=== PATIENT | male | born 1965 | race Caucasian/White ===

== ENCOUNTER 2017-11-20 05:05 | Observation (INO) ==
[2017-11-20] MEDS ORDERED: methylPREDNISolone 125 MG/2 ML VIAL IVP ONE (05:15)
[2017-11-20] MEDS ORDERED: 0.9 % Sodium Chloride 1,000 ML IVC ONE (05:15)
[2017-11-20] MEDS ORDERED: Ipratropium/Albuterol Neb 3 ML IH ONE (05:33)
--- NOTE | 2017-11-20 05:33 | Emergency Department Note ---
Disposition Clinical Impression: Asthma exacerbation Qualifiers: Asthma severity: mild Asthma persistence: unspecified Qualified Code(s): J45.901 - Unspecified asthma with (acute) exacerbation Disposition: Still a Patient Condition: Undetermined General Adult HPI - General Chief complaint: ED Chest Pain Time Seen by Provider: 11/20/17 05:08 Source: patient Mode of arrival: private vehicle Limitations: no limitations Nursing Notes Reviewed: Yes Vital Signs Reviewed: Yes - History of Present Illness HPI Narrative: 52-year-old male with a history of asthma, hypertension presents emergency department for evaluation of difficulty breathing, possible allergic reaction. Patient states about 345 this morning he got up and was having a difficult time breathing, he noticed a rash all over the back of his legs, trunk, back that was red and raised and was pruritic. He said he was drenched in sweat and had a few minutes of heavy chest pressure. He states he woke his up who gave him a 25 mg of Benadryl at 0 4:15. Patient states afterwards it felt like his "lips were going numb" and that his tongue was "itchy" at that point, his called for squad to bring him to the emergency department. Patient states now, his tongue and lips feel "normal", he is denying chest pain at this time, pruritus has gone away. His only complaint right now is shortness of breath and difficulty with breathing. He denies any recent illness , fever, chills, difficulty swallowing, facial swelling, tongue swelling, trismus, choking, lip swelling, shortness of breath prior to tonight, dyspnea with exertion, nausea, vomiting, consultation, diarrhea, edema. Patient denies exposure to known allergens. He states no new foods, soaps, lotions, laundry detergents, clothes. He did not have the windows open, nothing has changed. 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 Denies: confusion, cough, fever/chills, headaches, loss of appetite, malaise, nausea/vomiting, seizure, syncope, weakness Treatments Prior to Arrival: other - Related Data Home Medications Medication Instructions Recorded Confirmed Albuterol Sulfate [Albuterol 1 puff IH Q4H 12/21/14 02/01/15 Inhaler] Aspirin Enteric Coated [Aspirin EC] 81 mg PO DAILY 12/21/14 02/01/15 Dextroamphetamine/Amphetamine 30 mg PO BID 12/21/14 02/01/15 [Adderall 30 mg Tablet] Atorvastatin [Lipitor] 10 mg PO HS 02/01/15 02/01/15 Escitalopram [Lexapro] 10 mg PO DAILY 02/01/15 02/01/15 Esomeprazole Magnesium [Nexium] 40 mg PO DAILY 02/01/15 02/01/15 Metoprolol XL (24 HR) Succ [Toprol 25 mg PO QPM 02/01/15 02/01/15 XL] Montelukast [Singulair] 10 mg PO DAILY 02/01/15 02/01/15 Ropinirole HCl [Requip] 2 mg PO HS 02/01/15 02/01/15 Previous Rx's Medication Instructions Recorded Ciprofloxacin [Cipro] 500 mg PO BID #14 tablet 04/08/15 Ondansetron ODT [Zofran ODT] 4 mg SL Q6HR #30 tab.rapdis 04/08/15 OxyCODONE/APAP 5/325 [Percocet 1 each PO Q4HR #10 tablet 04/08/15 5/325 MG] Tamsulosin [Flomax] 0.4 mg PO DAILY #5 cap.er.24h 04/08/15 Acetaminophen [Tylenol] 500 mg PO Q6HR PRN #20 tablet 04/13/17 Allergies Allergy/AdvReac Type Severity Reaction Status Date / Time bee venom protein (honey bee) Allergy Anaphylaxis Verified 04/13/17 16:15 shellfish derived Allergy Swelling Verified 04/13/17 16:15 of Lip/Tongue/Throat All systems ED: reviewed and negative except as stated. Review of Systems: As Per HPI Past Medical History - Past Medical History Attestation: Yes The following information was validated with the patient. Source: patient Medical history: Reports: asthma, COPD, hypertension, migraine Surgical history: Reports: orthopedic, other, vasectomy, other Psychiatric history: Reports: anxiety, depression - Social History Smoking Status: Current every day smoker Smokeless Tobacco Status: No Alcohol use: Reports: none Drug use: Reports: none Physical Exam - General Limitations: no limitations General appearance: alert, in no apparent distress - Head Head exam: atraumatic, normocephalic, normal inspection - Eye Eye exam: Present: normal appearance - ENT ENT exam: normal exam, normal oropharynx, mucous membranes moist - Expanded ENT Exam Mouth exam: Present: normal external inspection, tongue normal. Absent: drooling, trismus, lip swelling, tongue elevation, tounge swelling, laceration Teeth exam: Present: normal inspection Throat exam: Present: normal inspection - Neck Neck exam: Present: normal inspection, full ROM, trachea midline. Absent: tenderness, lymphadenopathy - Chest Chest inspection: Present: normal inspection, symmetric chest wall rise - Respiratory Respiratory exam: Present: wheezes, accessory muscle use - Expanded Respiratory Exam Location: wheezes: Left, Right, Upper, Lower, decreased breath sounds: Lower, Right, Left - Cardiovascular Cardiovascular exam: Present: regular rate, normal rhythm, normal heart sounds - Abdominal Exam Abdominal exam: Present: soft, Non-Tender, normal bowel sounds - Extremities Exam Extremities exam: Present: normal inspection, full ROM. Absent: tenderness, pedal edema - Expanded Lower Extremity Exam Neurovascular/Tendon exam: Present: normal capillary refill. Absent: pulse deficit Gait: observed and normal - Back Exam Back exam: Present: normal inspection, full ROM - Neurological Exam Neurological exam: Present: alert, oriented X3, CN II-XII intact. Absent: motor sensory deficit - Expanded Neurological Exam Patient oriented to: Present: person, place, time Speech: Present: fluid speech Cranial nerves: EOM function (II, III, IV, ): Normal, facial sensation (V): Normal, facial palsy (VII): Normal, spinal accessory function (XI): Normal, tongue deviation (XII): Normal Cerebellar function: heel to davis: Normal Motor strength - LUE: 5/5 Motor strength - RUE: 4/5 (chronic loss of strength) Motor strength - LLE: 5/5 Motor strength - RLE: 5/5 Sensory exam upper extremity: light touch: Normal Sensory exam lower extremity: light touch: Normal Coma Scale Eye Opening: Spontaneous Coma Scale Motor Response: Obeys Commands Coma Scale Verbal Response: Oriented Coma Scale Total: 15 - Psychiatric Psychiatric exam: Present: normal affect, normal mood - Skin Skin exam: Present: warm, dry, intact, normal color, other - Expanded Skin Exam Type of lesion: Present: rash 1 - Sporadic small erythemic macular areas, faint in appearance. 2 - Sporadic small erythemic macular areas, faint in appearance. 3 - Sporadic small erythemic macular areas, faint in appearance. Course Course Narrative: Well-developed, nontoxic-appearing male. Respirations are easy and even, patient noted to be using accessory muscles but does not appear in respiratory distress. He is able to speak in full sentences. Patient is neurologically intact. Lungs wheezing throughout with diminished sounds lower lobes posteriorly. Abdomen soft. There is a faint macular rash sporadically to back of legs, trunk, upper back. We will obtain basic labs, chest x-ray provide sign Medrol, breathing treatment , 25 Benadryl reevaluate. Vital Signs Temperature 97.4 F L 11/20/17 05:10 Pulse Rate 81 11/20/17 05:10 Respiratory Rate 18 11/20/17 05:10 Blood Pressure 155/114 11/20/17 05:10 O2 Sat by Pulse Oximetry 96 11/20/17 05:10 Temperature 97.4 F L 11/20/17 05:10 Pulse Rate 81 11/20/17 05:10 Respiratory Rate 18 11/20/17 05:10 Blood Pressure 155/114 11/20/17 05:10 O2 Sat by Pulse Oximetry 96 11/20/17 05:10 Oxygen Delivery Oxygen Delivery Room Air S.B.A.R. - S.B.A.R. Situation: Demographics, MOA Background: Presenting Complaint, Relevant PMH, Meds, & Allergies Assessment: Vital Signs, Course and respsone to treatment, Exam Concerns, Patient/Family Expectation, Pertinant Lab Results, Outstanding Labs Recommendation: Barrier(s) to disposition, Recommendation based on pending studies, treatments, or consults S.B.A.R. Report Given to: Emerald Aguirre CNP S.B.A.RKendal Repor Time: 06:05
[2017-11-20 06:26] LABS: Basophils % 0.3 %; Eosinophils % 0.3 %; Hematocrit 47.8 % (37.5-50.1); Hemoglobin 16.9 g/dL (12.9-16.9); Immature Granulocytes % 0.2 % (0-4); Lymphocytes # 2.3 K/mcL (0.6-4.6); Lymphocytes % 25.7 %; Mean Corpuscular HGB Conc 35.4 g/dL (31.6-35.5); Mean Corpuscular Hemoglobin 33.7 pg (28.0-33.3); Mean Corpuscular Volume 95.4 fL (83.0-100.0); Mean Platelet Volume 10.4 fL (9.4-12.4); Monocytes # 0.9 K/mcL (0.0-1.3); Monocytes % 9.6 %; Neutrophils # 5.7 K/mcL (1.6-8.9); Platelet Count 169 K/mcL (140-400); Red Blood Count 5.01 M/mcL (4.19-5.50); Red Cell Distribution Width 13.4 % (11.5-14.5); Segmented Neutrophils % 63.9 %
[2017-11-20] MEDS ORDERED: Aspirin 81 MG TAB.CHEW PO ONE (06:37)
[2017-11-20] MEDS ORDERED: Nitroglycerin 0.4 MG TAB.SUBL SL PRN (06:37)
[2017-11-20 06:38] LABS: Activated Partial Thrombo Time 35.1 Seconds (26.0-36.0)
--- NOTE | 2017-11-20 06:42 | Emergency Department Note ---
Disposition Clinical Impression: Hypoxia Asthma exacerbation Qualifiers: Asthma severity: mild Asthma persistence: unspecified Qualified Code(s): J45.901 - Unspecified asthma with (acute) exacerbation Chest pain Qualifiers: Chest pain type: unspecified Qualified Code(s): R07.9 - Chest pain, unspecified Disposition: Admitted As Inpatient Condition: Undetermined Referrals: Ricci Cleveland DO [Primary Care Provider] - Forms: ED Satisfaction Letter Time of Disposition: 09:37 General Adult HPI - General Chief complaint: ED Chest Pain Time Seen by Provider: 11/20/17 05:08 Source: patient Mode of arrival: private vehicle Limitations: no limitations - History of Present Illness Pain Scale: 3 Improves with: medication Worsens with: nothing Associated symptoms: Reports: chest pain, diaphoresis, rash, shortness of breath. Denies: confusion, cough, fever/chills, headaches, loss of appetite, malaise, nausea/vomiting, seizure, syncope, weakness Treatments Prior to Arrival: other - Related Data Home Medications Medication Instructions Recorded Confirmed Albuterol Sulfate [Albuterol 2 puff IH Q4H PRN 11/20/17 11/20/17 Inhaler] Aspirin Enteric Coated [Aspirin EC] 81 mg PO DAILY 11/20/17 11/20/17 Atorvastatin [Lipitor] 40 mg PO HS 11/20/17 11/20/17 Cholecalciferol (D-3) [Vitamin D] 1,000 unit PO DAILY 11/20/17 11/20/17 Dextroamphetamine/Amphetamine 30 mg PO QAM 11/20/17 11/20/17 [Adderall Xr 30 mg Capsule] Dextroamphetamine/Amphetamine 30 mg PO QPM 11/20/17 11/20/17 [Dextroamp-Amphetamin 30 mg Tab] Escitalopram [Lexapro] 10 mg PO DAILY 11/20/17 11/20/17 Esomeprazole Magnesium [Nexium 44.6 mg PO DAILY 11/20/17 11/20/17 24Hr] Fluticasone Propionate Nasal 1 spr NS DAILY 11/20/17 11/20/17 [Flonase] Fluticasone/Vilanterol [Breo 1 puff IH BID 11/20/17 11/20/17 Ellipta 200-25 Mcg INH] Metoprolol Succinate [Toprol Xl] 25 mg PO DAILY 11/20/17 11/20/17 Montelukast [Singulair] 10 mg PO DAILY 11/20/17 11/20/17 Ropinirole HCl [Requip] 3 mg PO HS 11/20/17 11/20/17 Allergies Allergy/AdvReac Type Severity Reaction Status Date / Time bee venom protein (honey bee) Allergy Anaphylaxis Verified 11/20/17 09:29 shellfish derived Allergy Swelling Verified 11/20/17 09:29 of Lip/Tongue/Throat Past Medical History - Past Medical History Medical history: Reports: asthma, COPD, hypertension, migraine Surgical history: Reports: orthopedic, other, vasectomy, other Psychiatric history: Reports: anxiety, depression - Social History Smoking Status: Current every day smoker Smokeless Tobacco Status: No Alcohol use: Reports: none Drug use: Reports: none Physical Exam - General Limitations: no limitations General appearance: alert, in no apparent distress Course Course Narrative: 0600: I have assumed care of this patient from GARETT Zendejas due to mid-level shift change. Please see Cristiana's documentation for care performed prior to my arrival. Briefly, this is an alert and oriented nontoxic-appearing 52-year-old male that presented by EMS with multiple complaints. He states that he was awoken at approximately 4:00 this morning with a sensation of shortness of breath as well as a sensation of swelling of the lips and "itching" of the tongue. His administered 25 mg of Benadryl by mouth. The time of his arrival, the patient stated that the rash was improving he still complained of some shortness of breath. He also admitted to sensation of right-sided chest pressure that was nonradiating. Upon further conversation, the patient is complaining of nontraumatic left shoulder pain for the last 2 weeks. He was given Benadryl, Solu-Medrol, and a breathing treatment upon his arrival. He states significant improvement in his shortness of breath as well resolution of his rash. He denied any new medications, household chemicals, or personal hygiene products. At the time my exam, he denied any ongoing chest pressure however the left shoulder pain continued. EKG shows a normal sinus rhythm. Laboratory workup is pending at this time. 0728: Given the patient's abrupt onset of symptoms, feel that advanced imaging by way of a CTA of the chest is warranted. The patient does have a listed allergy to shellfish however states he is tolerated IV contrast in the past without ill effect. 0900: I discussed this patient's case with Dr. Girard. Dr. Girard has had a ifae-bq-scar evaluation with the patient, reviewed his laboratory and radiology results. Dr. Girard states that he believes that they are quite possibly could have been an allergic component to the patient's complaints however the patient does have a history of asthma and was saturating at only 90-92% on room air. He is not on home oxygen at home. He does use a CPAP at night for obstructive sleep apnea. He recommends admission to the hospital service for further evaluation of an asthma exacerbation and chest pain rule out. I discussed this plan with the patient and his spouse and they are in agreement. 0930: I spoke with Dr. Mcintosh of the hospitalist service. has accepted the patient for admission for further evaluation and treatment however requests ear nose and throat consultation regarding the patient's prior complaints of a sensation of swelling of the lips and "itching of the tongue". ENT alarm installation technician has been paged. 0940: I spoke with Dr. levin, ear nose and throat alarm installation technician. Dr. Ruiz states that he will see the patient in house today after clinic hours. Vital Signs Temperature 97.4 F L 11/20/17 05:10 Pulse Rate 81 11/20/17 05:10 Respiratory Rate 18 11/20/17 05:10 Blood Pressure 155/114 11/20/17 05:10 O2 Sat by Pulse Oximetry 96 11/20/17 05:10 Temperature 97.4 F L 11/20/17 05:10 Pulse Rate 76 11/20/17 08:50 Respiratory Rate 18 11/20/17 08:50 Blood Pressure 145/92 11/20/17 08:50 O2 Sat by Pulse Oximetry 98 11/20/17 08:50 Oxygen Delivery Oxygen Delivery Nasal Cannula Medical Decision Making - Medical Records Medical records reviewed: Yes I reviewed the patient's medical records. - Lab Data Lab results reviewed: Yes I reviewed the patient's lab results. Lab results narrative: Lab Results 11/20/17 11/20/17 11/20/17 Range/Units 06:13 06:13 06:13 WBC 8.9 (4.3-11.1) K/mcL RBC 5.01 (4.19-5.50) M/mcL Hgb 16.9 (12.9-16.9) g/dL Hct 47.8 (37.5-50.1) % MCV 95.4 (83.0-100.0) fL MCH 33.7 H (28.0-33.3) pg MCHC 35.4 (31.6-35.5) g/dL RDW 13.4 (11.5-14.5) % Plt Count 169 (140-400) K/mcL MPV 10.4 (9.4-12.4) fL Immature Gran % 0.2 (0-4) % Seg Neutrophils % 63.9 % Lymphocytes % 25.7 % Monocytes % 9.6 % Eosinophils % 0.3 % Basophils % 0.3 % Neutrophils # 5.7 (1.6-8.9) K/mcL Lymphocytes # 2.3 (0.6-4.6) K/mcL Monocytes # 0.9 (0.0-1.3) K/mcL Eosinophils # 0.0 (0.0-0.6) K/mcL Basophils # 0.0 (0.0-0.2) K/mcL PT 11.0 (9.4-12.1) Seconds INR 1.0 APTT 35.1 (26.0-36.0) Seconds Sodium 139 (136-145) mEq/L Potassium 3.5 (3.5-5.1) mEq/L Chloride 109 H (98-107) mEq/L Carbon Dioxide 25 (23-29) mEq/L BUN 13 (6-20) mg/dL Creatinine 0.73 (0.70-1.30) mg/dL Est GFR ( Amer) > 60 (> 60) Est GFR (Non-Af Amer) > 60 (> 60) BUN/Creatinine Ratio 18 (6-26) Glucose 92 (70-105) mg/dL Calculated Osmolality 288 (280-300) Calcium 8.8 (8.6-10.3) mg/dL Troponin I < 0.03 (< 0.04) ng/mL Result diagrams: 11/20/17 06:13 11/20/17 06:13 Lab Results 11/20/17 11/20/17 11/20/17 Range/Units 06:13 06:13 06:13 WBC 8.9 (4.3-11.1) K/mcL RBC 5.01 (4.19-5.50) M/mcL Hgb 16.9 (12.9-16.9) g/dL Hct 47.8 (37.5-50.1) % MCV 95.4 (83.0-100.0) fL MCH 33.7 H (28.0-33.3) pg MCHC 35.4 (31.6-35.5) g/dL RDW 13.4 (11.5-14.5) % Plt Count 169 (140-400) K/mcL MPV 10.4 (9.4-12.4) fL Immature Gran % 0.2 (0-4) % Seg Neutrophils % 63.9 % Lymphocytes % 25.7 % Monocytes % 9.6 % Eosinophils % 0.3 % Basophils % 0.3 % Neutrophils # 5.7 (1.6-8.9) K/mcL Lymphocytes # 2.3 (0.6-4.6) K/mcL Monocytes # 0.9 (0.0-1.3) K/mcL Eosinophils # 0.0 (0.0-0.6) K/mcL Basophils # 0.0 (0.0-0.2) K/mcL PT 11.0 (9.4-12.1) Seconds INR 1.0 APTT 35.1 (26.0-36.0) Seconds Sodium 139 (136-145) mEq/L Potassium 3.5 (3.5-5.1) mEq/L Chloride 109 H (98-107) mEq/L Carbon Dioxide 25 (23-29) mEq/L BUN 13 (6-20) mg/dL Creatinine 0.73 (0.70-1.30) mg/dL Est GFR ( Amer) > 60 (> 60) Est GFR (Non-Af Amer) > 60 (> 60) BUN/Creatinine Ratio 18 (6-26) Glucose 92 (70-105) mg/dL Calculated Osmolality 288 (280-300) Calcium 8.8 (8.6-10.3) mg/dL Troponin I < 0.03 (< 0.04) ng/mL B-Natriuretic Peptide (Less than 100) pg/mL 11/20/17 Range/Units 07:49 WBC (4.3-11.1) K/mcL RBC (4.19-5.50) M/mcL Hgb (12.9-16.9) g/dL Hct (37.5-50.1) % MCV (83.0-100.0) fL MCH (28.0-33.3) pg MCHC (31.6-35.5) g/dL RDW (11.5-14.5) % Plt Count (140-400) K/mcL MPV (9.4-12.4) fL Immature Gran % (0-4) % Seg Neutrophils % % Lymphocytes % % Monocytes % % Eosinophils % % Basophils % % Neutrophils # (1.6-8.9) K/mcL Lymphocytes # (0.6-4.6) K/mcL Monocytes # (0.0-1.3) K/mcL Eosinophils # (0.0-0.6) K/mcL Basophils # (0.0-0.2) K/mcL PT (9.4-12.1) Seconds INR APTT (26.0-36.0) Seconds Sodium (136-145) mEq/L Potassium (3.5-5.1) mEq/L Chloride (98-107) mEq/L Carbon Dioxide (23-29) mEq/L BUN (6-20) mg/dL Creatinine (0.70-1.30) mg/dL Est GFR ( Amer) (> 60) Est GFR (Non-Af Amer) (> 60) BUN/Creatinine Ratio (6-26) Glucose (70-105) mg/dL Calculated Osmolality (280-300) Calcium (8.6-10.3) mg/dL Troponin I (< 0.04) ng/mL B-Natriuretic Peptide 9 (Less than 100) pg/mL - Radiology Data Radiology results reviewed: Yes I reviewed the patient's radiology results. Chest X-Ray 11/20/17 05:20 IMPRESSION: Pulmonary edema. D/ / Anatoly Garner MD / Anatoly Garner MD Interpreting Provider: Anatoly Garner MD Shoulder X-Ray 11/20/17 06:37 IMPRESSION: 1. No acute radiographic abnormality to account for patient's left shoulder pain. D/ / Melquiades Tan MD / Melquiades Tan MD Interpreting Provider: Melquiades Tan MD Chest CTA 11/20/17 07:25 IMPRESSION: No evidence of pulmonary embolism or acute pulmonary abnormality. D/ / Krishna Nieves MD / Krishna Nieves MD Interpreting Provider: Krishna Nieves MD - EKG Data EKG #1 EKG attestation: Yes I reviewed and interpreted this EKG. EKG results narrative: EKG reviewed by Dr. Collins as well. EKG shows a sinus rhythm at a rate of 76 bpm. [place] interval 167, QRS duration 117, QT/QTc interval 376/406. No ectopy noted. No STEMI. No significant changes when compared to an EKG dated from 06/11.
[2017-11-20 06:51] LABS: BUN/Creatinine Ratio 18 (6-26); Blood Urea Nitrogen 13 mg/dL (6-20); Calcium 8.8 mg/dL (8.6-10.3); Carbon Dioxide 25 mEq/L (23-29); Chloride 109 mEq/L (98-107); Glucose 92 mg/dL (70-105); Osmolality,Calculated 288 (280-300); Potassium 3.5 mEq/L (3.5-5.1); Sodium 139 mEq/L (136-145); Troponin I < 0.03 ng/mL (< 0.04); eGFR For African Americans > 60 (> 60); eGFR For Non-African Americans > 60 (> 60)
[2017-11-20] MEDS ORDERED: Isovue-370 500 ML INFUS..BTL IV ONE (07:25)
--- NOTE | 2017-11-20 08:21 | Emergency Department Note ---
Disposition Clinical Impression: Hypoxia Asthma exacerbation Qualifiers: Asthma severity: mild Asthma persistence: unspecified Qualified Code(s): J45.901 - Unspecified asthma with (acute) exacerbation Disposition: Admitted As Inpatient Condition: Undetermined Referrals: Ricci Cleveland DO [Primary Care Provider] - Forms: ED Satisfaction Letter General Adult HPI - General Chief complaint: ED Chest Pain Stated complaint: CHEST PAIN Time Seen by Provider: 11/20/17 05:08 Source: patient Mode of arrival: private vehicle Limitations: no limitations - History of Present Illness Pain Scale: 3 Improves with: medication Worsens with: nothing Associated symptoms: Reports: chest pain, diaphoresis, rash, shortness of breath. Denies: confusion, cough, fever/chills, headaches, loss of appetite, malaise, nausea/vomiting, seizure, syncope, weakness Treatments Prior to Arrival: other - Related Data Home Medications Medication Instructions Recorded Confirmed Albuterol Sulfate [Albuterol 1 puff IH Q4H 12/21/14 02/01/15 Inhaler] Aspirin Enteric Coated [Aspirin EC] 81 mg PO DAILY 12/21/14 02/01/15 Dextroamphetamine/Amphetamine 30 mg PO BID 12/21/14 02/01/15 [Adderall 30 mg Tablet] Atorvastatin [Lipitor] 10 mg PO HS 02/01/15 02/01/15 Escitalopram [Lexapro] 10 mg PO DAILY 02/01/15 02/01/15 Esomeprazole Magnesium [Nexium] 40 mg PO DAILY 02/01/15 02/01/15 Metoprolol XL (24 HR) Succ [Toprol 25 mg PO QPM 02/01/15 02/01/15 XL] Montelukast [Singulair] 10 mg PO DAILY 02/01/15 02/01/15 Ropinirole HCl [Requip] 2 mg PO HS 02/01/15 02/01/15 Previous Rx's Medication Instructions Recorded Ciprofloxacin [Cipro] 500 mg PO BID #14 tablet 04/08/15 Ondansetron ODT [Zofran ODT] 4 mg SL Q6HR #30 tab.rapdis 04/08/15 OxyCODONE/APAP 5/325 [Percocet 1 each PO Q4HR #10 tablet 04/08/15 5/325 MG] Tamsulosin [Flomax] 0.4 mg PO DAILY #5 cap.er.24h 04/08/15 Acetaminophen [Tylenol] 500 mg PO Q6HR PRN #20 tablet 04/13/17 Allergies Allergy/AdvReac Type Severity Reaction Status Date / Time bee venom protein (honey bee) Allergy Anaphylaxis Verified 04/13/17 16:15 shellfish derived Allergy Swelling Verified 04/13/17 16:15 of Lip/Tongue/Throat Past Medical History - Past Medical History Medical history: Reports: asthma, COPD, hypertension, migraine Surgical history: Reports: orthopedic, other, vasectomy, other Psychiatric history: Reports: anxiety, depression - Social History Smoking Status: Current every day smoker Smokeless Tobacco Status: No Alcohol use: Reports: none Drug use: Reports: none Physical Exam - General Limitations: no limitations General appearance: alert, in no apparent distress Course Course Narrative: Patient seen in conjunction with the [facility] Bashir Aguirre. Patient with history of asthma presenting for difficulty in breathing and associated chest pain and hives. Symptoms began to improve upon treatment for COPD exacerbation. Patient did have hives and received Benadryl. Patient did not receive any epinephrine. Does have a previous history of shellfish allergy requiring epinephrine. Has tolerated IV contrast in the past. The patient symptoms have improved but he continues to remain hypoxic with some mild wheezing. Due to the sudden onset of symptoms and hypoxia, the patient will undergo CTA to rule out PE or other pathology. Patient will undergo admission for asthma/COPD exacerbation possibly initiated by allergic reaction. Asthma exacerbation. Hypoxia. Vital Signs Temperature 97.4 F L 11/20/17 05:10 Pulse Rate 81 11/20/17 05:10 Respiratory Rate 18 11/20/17 05:10 Blood Pressure 155/114 11/20/17 05:10 O2 Sat by Pulse Oximetry 96 11/20/17 05:10 Temperature 97.4 F L 11/20/17 05:10 Pulse Rate 71 11/20/17 07:44 Respiratory Rate 18 11/20/17 07:44 Blood Pressure 121/91 11/20/17 07:44 O2 Sat by Pulse Oximetry 94 11/20/17 07:44 Oxygen Delivery Oxygen Delivery Nasal Cannula Medical Decision Making - Lab Data Result diagrams: 11/20/17 06:13 11/20/17 06:13 Lab Results 11/20/17 11/20/17 11/20/17 Range/Units 06:13 06:13 06:13 WBC 8.9 (4.3-11.1) K/mcL RBC 5.01 (4.19-5.50) M/mcL Hgb 16.9 (12.9-16.9) g/dL Hct 47.8 (37.5-50.1) % MCV 95.4 (83.0-100.0) fL MCH 33.7 H (28.0-33.3) pg MCHC 35.4 (31.6-35.5) g/dL RDW 13.4 (11.5-14.5) % Plt Count 169 (140-400) K/mcL MPV 10.4 (9.4-12.4) fL Immature Gran % 0.2 (0-4) % Seg Neutrophils % 63.9 % Lymphocytes % 25.7 % Monocytes % 9.6 % Eosinophils % 0.3 % Basophils % 0.3 % Neutrophils # 5.7 (1.6-8.9) K/mcL Lymphocytes # 2.3 (0.6-4.6) K/mcL Monocytes # 0.9 (0.0-1.3) K/mcL Eosinophils # 0.0 (0.0-0.6) K/mcL Basophils # 0.0 (0.0-0.2) K/mcL PT 11.0 (9.4-12.1) Seconds INR 1.0 APTT 35.1 (26.0-36.0) Seconds Sodium 139 (136-145) mEq/L Potassium 3.5 (3.5-5.1) mEq/L Chloride 109 H (98-107) mEq/L Carbon Dioxide 25 (23-29) mEq/L BUN 13 (6-20) mg/dL Creatinine 0.73 (0.70-1.30) mg/dL Est GFR ( Amer) > 60 (> 60) Est GFR (Non-Af Amer) > 60 (> 60) BUN/Creatinine Ratio 18 (6-26) Glucose 92 (70-105) mg/dL Calculated Osmolality 288 (280-300) Calcium 8.8 (8.6-10.3) mg/dL Troponin I < 0.03 (< 0.04) ng/mL
[2017-11-20] MEDS ORDERED: Naloxone 0.4 MG/ML INJ IVP PRN (09:40)
--- NOTE | 2017-11-20 10:22 | Internal Med History&Physical ---
Date of Encounter: 11/20/17 Time of Encounter: 10:22 Internal Medicine - H&P: HPI History of present illness: Mr. Del Rio is a 52 year old male with history of asthma, hypertension and shellfish/bee venom allergy presented for acute onset of shortness of breath and chest pain. His was present during this time and she noticed he had hives, tongue swelling, and he noted that he had lip numbness. She gave him Benadryl during that time. Patient states he is still short of breath but it improved. He denies and signs of difficulty with airway or sore throat. No new types of foods recently. He denies fevers, edema. In the ED patient was not noted to have any respiratory compromise. He was given Solu Medrol and Duo neb therapy. He had a chest x-ray showing pulmonary edema and CTA of chest was negative for PE. He required supplemental oxygen for hypoxia. Past Med Surg Social Fam HX - Past Medical History Medical history: asthma, COPD, hypertension, migraine Psychiatric history: anxiety, depression - Past Surgical History Surgical History: orthopedic, other, vasectomy, other Additional surgical history: throat surgery-film in throat-benign. deviated nasal septum surgery - Social History Smoking Status: Current every day smoker Smokeless Tobacco Status: No Alcohol use: none Drug use: none Internal Medicine - H&P: Meds Albuterol Sulfate [Albuterol Inhaler] 2 puff IH Q4H PRN 11/20/17 [History] Aspirin Enteric Coated [Aspirin EC] 81 mg PO DAILY 11/20/17 [History] Atorvastatin [Lipitor] 40 mg PO HS 11/20/17 [History] Cholecalciferol (D-3) [Vitamin D] 1,000 unit PO DAILY 11/20/17 [History] Dextroamphetamine/Amphetamine [Adderall Xr 30 mg Capsule] 30 mg PO QAM 11/20/17 [History] Dextroamphetamine/Amphetamine [Dextroamp-Amphetamin 30 mg Tab] 30 mg PO QPM [History] Escitalopram [Lexapro] 10 mg PO DAILY 11/20/17 [History] Esomeprazole Magnesium [Nexium 24Hr] 44.6 mg PO DAILY 11/20/17 [History] Fluticasone Propionate Nasal [Flonase] 1 spr NS DAILY 11/20/17 [History] Fluticasone/Vilanterol [Breo Ellipta 200-25 Mcg INH] 1 puff IH BID 11/20/17 [ History] Metoprolol Succinate [Toprol Xl] 25 mg PO DAILY 11/20/17 [History] Montelukast [Singulair] 10 mg PO DAILY 11/20/17 [History] Ropinirole HCl [Requip] 3 mg PO HS 11/20/17 [History] 3 Allergy/AdvReac Type Severity Reaction Status Date / Time bee venom protein (honey bee) Allergy Anaphylaxis Verified 11/20/17 09:29 shellfish derived Allergy Swelling Verified 11/20/17 09:29 of Lip/Tongue/Throat All Systems PM: A 10-system review of systems was performed and is negative for pertinent findings except as documented above in the HPI. - Constitutional Constitutional: excessive sweating, no fatigue, no fever(s), no lethargy - EENT Eyes: no change in vision, no discharge, no pain, no photophobia Ears: no ear discharge, no ear pain, no tinnitus Nose, mouth and throat: lip swelling, tongue swelling, no change in voice, no dysphagia, no epistaxis, no hoarseness, no mouth lesions, no nasal discharge, no nasal obstruction, no neck pain, no nose pain, no sore throat, no throat swelling - Cardiovascular Cardiovascular ROS IM: chest pain - Respiratory Respiratory: dyspnea, no hemoptysis, no wheezing, no stridor - Gastrointestinal Gastrointestinal: no abdominal pain, no diarrhea, no hematemesis, no hematochezia, no melena, no nausea, no vomiting - Musculoskeletal Musculoskeletal ROS IM: no numbness, no tingling - Integumentary Integumentary IM: no unusual bruising Additional comments: Hives - Constitutional Vitals: Temp Pulse Resp BP Pulse Ox 97.4 F L 76 18 145/92 98 11/20/17 05:10 11/20/17 08:50 11/20/17 08:50 11/20/17 08:50 11/20/17 08:50 - Head Head exam: Present: atraumatic, normocephalic - Eye Eye exam: Present: PERRL, conjuntiva pink, sclera anicteric Pupils: Present: PERRL - Neck Neck exam general surgery: Present: supple, trachea midline. Absent: lymphadenopathy - Respiratory Respiratory exam: Present: CTAB. Absent: accessory muscle use, rales, rhonchi, wheezes Additional comments: Fine rales at bases Good air exchange throughout. - Cardiovascular Cardiovascular exam: Present: RRR, +S1, +S2. Absent: diastolic murmur, gallop, rubs, systolic murmur - GI/Abdominal GI/Abdominal exam: Present: normal bowel sounds, soft, no peritoneal signs. Absent: distended, tenderness - Extremities Exam Extremities exam: Present: warm, radial pulses palpable and symmetrical. Absent : calf tenderness, cyanotic, pedal edema - Neurological Exam Neurological exam: Present: CN II-XII intact, oriented X3, no focal deficits. Absent: pronater drift, facial droop, speech deficit - Skin Skin exam: Present: dry, intact Internal Med - H&P Results - Labs CBC & Chem 7: 11/20/17 06:13 11/20/17 06:13 Labs: Short CBC 11/20/17 Range/Units 06:13 WBC 8.9 (4.3-11.1) K/mcL Hgb 16.9 (12.9-16.9) g/dL Hct 47.8 (37.5-50.1) % Plt Count 169 (140-400) K/mcL Neutrophils # 5.7 (1.6-8.9) K/mcL BMP 11/20/17 06:13 Sodium 139 Potassium 3.5 Chloride 109 H Carbon Dioxide 25 BUN 13 Creatinine 0.73 Glucose 92 Calcium 8.8 Cardiac Enzymes 11/20/17 Range/Units 06:13 Troponin I < 0.03 (< 0.04) ng/mL - Impressions ITS Impressions Chest X-Ray 11/20/17 05:20 IMPRESSION: Pulmonary edema. D/ / Anatoly Garner MD / Anatoly Garner MD Interpreting Provider: Anatoly Garner MD Shoulder X-Ray 11/20/17 06:37 IMPRESSION: 1. No acute radiographic abnormality to account for patient's left shoulder pain. D/ / Melquiades Tan MD / Melquiades Tan MD Interpreting Provider: Melquiades Tan MD Chest CTA 11/20/17 07:25 IMPRESSION: No evidence of pulmonary embolism or acute pulmonary abnormality. D/ / Krishna Nieves MD / Krishna Nieves MD Interpreting Provider: Krishna Nieves MD - Assessment and plan (1) Acute respiratory failure with hypoxia Current Visit: Yes Status: Acute Assessment and plan: Likely from asthma exacerbation and allergic reaction. Unknown source of reaction. Continue supplemental O2 and wean to room air Airway is not compromised Continue Duo Neb and Solu Medrol Benadryl as needed ENT consulted, recommendations appreciated. (2) Allergic reaction Current Visit: Yes Status: Acute Assessment and plan: Has known history of allergy to shellfish and bee venom. However, he did have have any exposure to this recently. Continue IV steroids, Benadryl as needed. Airway is not compromised ENT consulted, recommendations appreciated. Qualifiers: Encounter type: initial encounter Qualified Code(s): T78.40XA - Allergy, unspecified, initial encounter (3) Hypertension Current Visit: Yes Status: Acute Assessment and plan: Continue metoprolol Qualifiers: Hypertension type: essential hypertension Qualified Code(s): I10 - Essential (primary) hypertension (4) Asthma exacerbation Current Visit: Yes Status: Acute Assessment and plan: Plan as above Wean O2 as tolerated. Qualifiers: Asthma severity: unspecified severity Asthma persistence: unspecified Qualified Code(s): J45.901 - Unspecified asthma with (acute) exacerbation (5) Chest pain Current Visit: Yes Status: Acute Assessment and plan: Likely from acute allergic reaction with asthma exacerbation EKG unremarkable Troponin in ED negative - Recheck troponin 6 hrs from first draw - Treat as per problem #1. Qualifiers: Chest pain type: unspecified Qualified Code(s): R07.9 - Chest pain, unspecified - Time Spent With Patient Total time spent is greater than 50% in coordination of care (as documented) at patient's floor/unit and/or counseling patient:
[2017-11-20] MEDS ORDERED: Ipratropium/Albuterol Neb 3 ML ONE (10:41)
[2017-11-20] MEDS: Ipratropium/Albuterol Neb 3 ML IH SCH ×3 (11:32→21:09)
--- NOTE | 2017-11-20 13:02 | ENT - Consult Note ---
Date of Encounter: 11/20/17 Time of Encounter: 01:00 History of Present Illness History of present illness: White male admitted to medicine for swelling of upper airway oral cavity lips tongue treated with steroids and Benadryl with positive response complaints with breathing at this time no problems with swallowing or speaking doubt any laryngeal edema no prior history of upper airway swelling Past Med Surg Social Fam HX - Past Medical History Medical history: asthma, COPD, hypertension, migraine Psychiatric history: anxiety, depression - Past Surgical History Surgical History: orthopedic, other, vasectomy, other Additional surgical history: throat surgery-film in throat-benign. deviated nasal septum surgery - Social History Smoking Status: Current every day smoker Smokeless Tobacco Status: No Alcohol use: none Drug use: none - Family History Mother Hx Family Cancer: Yes Medications and Allergies Albuterol Sulfate [Albuterol Inhaler] 2 puff IH Q4H PRN 11/20/17 [History] Aspirin Enteric Coated [Aspirin EC] 81 mg PO DAILY 11/20/17 [History] Atorvastatin [Lipitor] 40 mg PO HS 11/20/17 [History] Cholecalciferol (D-3) [Vitamin D] 1,000 unit PO DAILY 11/20/17 [History] Dextroamphetamine/Amphetamine [Adderall Xr 30 mg Capsule] 30 mg PO QAM 11/20/17 [History] Dextroamphetamine/Amphetamine [Dextroamp-Amphetamin 30 mg Tab] 30 mg PO QPM [History] Escitalopram [Lexapro] 10 mg PO DAILY 11/20/17 [History] Esomeprazole Magnesium [Nexium 24Hr] 44.6 mg PO DAILY 11/20/17 [History] Fluticasone Propionate Nasal [Flonase] 1 spr NS DAILY 11/20/17 [History] Fluticasone/Vilanterol [Breo Ellipta 200-25 Mcg INH] 1 puff IH BID 11/20/17 [ History] Metoprolol Succinate [Toprol Xl] 25 mg PO DAILY 11/20/17 [History] Montelukast [Singulair] 10 mg PO DAILY 11/20/17 [History] Ropinirole HCl [Requip] 3 mg PO HS 11/20/17 [History] 3 Allergy/AdvReac Type Severity Reaction Status Date / Time bee venom protein (honey bee) Allergy Anaphylaxis Verified 11/20/17 09:29 shellfish derived Allergy Swelling Verified 11/20/17 09:29 of Lip/Tongue/Throat ENT Exam Initial Vital Signs Temp Pulse Resp BP Pulse Ox 97.4 F L 81 18 155/114 96 11/20/17 05:10 11/20/17 05:10 11/20/17 05:10 11/20/17 05:10 11/20/17 05:10 - General physical appearance well developed, well nourished, no distress, no pain. negative: moderate distress, severe distress, moderate pain, severe pain, cachectic, obese - Eyes PERRL, normal ocular movement, icteric - ENT normal pinna, normal nares, normal mucosa, no hearing loss, no congestion, Other (Flexible laryngoscopy performed after anesthesia to both sides of the nostril scope was passed through the left nostril without any difficulty visualization the larynx revealed absolutely no evidence of any swelling of the vocal cords were mobile without any lesions). negative: decreased hearing, deviated nasal septum, nasal discharge, poor usp, dentures, mucosal exudate, dry mucosa - Neck no masses, trachea midline, no lymphadectomy. negative: deviated trachea, diffuse goiter, limited ROM - Respiratory normal expansion, normal respiratory effort, clear to percussion, clear to auscultation - Abdomen Abdomen: soft, non tender, bowel sounds, no tender, no surgical scars - Integumentary no rash, no growths, no abnormal pigmentation - Neurologic normal coordination, normal sensation - Musculoskeletal normal gait, normal posture - Psychiatric oriented to time, oriented to person, oriented to place, speech is normal, memory intact Exam Initial Vital Signs Temp Pulse Resp BP Pulse Ox 97.4 F L 81 18 155/114 96 11/20/17 05:10 11/20/17 05:10 11/20/17 05:10 11/20/17 05:10 11/20/17 05:10 Results - Labs 11/20/17 06:13 11/20/17 06:13 Abnormal lab results MCH 33.7 pg (28.0-33.3) H 11/20/17 06:13 Chloride 109 mEq/L (98-107) H 11/20/17 06:13 All other labs normal. Consult Discharge Plan - Plan Referrals: Ricci Cleveland DO [Primary Care Provider] -
[2017-11-20] MEDS: MethylPREDNISolone 40 MG/ML VIAL IVP SCH ×2 (14:36→17:46)
[2017-11-20] MEDS: Aspirin Enteric Coated 81 MG Tablet PO SCH (14:36)
[2017-11-20] MEDS ORDERED: AMPHETAMINE PO SCH (18:00)
[2017-11-20] MEDS ORDERED: DEXTROAMPHETAMINE PO SCH (18:00)
[2017-11-20] MEDS: (Fluticasone/Vilanterol [Breo Ellipta 200-25 Mcg Inh]) IH SCH (21:15)
[2017-11-21] MEDS: MethylPREDNISolone 40 MG/ML VIAL IVP SCH ×2 (00:43→05:27)
[2017-11-21] MEDS: Ipratropium/Albuterol Neb 3 ML IH SCH ×2 (03:08→11:09)
[2017-11-21 05:28] LABS: Basophils % 0.1 %; Hematocrit 44.8 % (37.5-50.1); Hemoglobin 15.7 g/dL (12.9-16.9); Immature Granulocytes % 0.4 % (0-4); Lymphocytes # 0.9 K/mcL (0.6-4.6); Lymphocytes % 5.5 %; Mean Corpuscular Hemoglobin 32.8 pg (28.0-33.3); Mean Corpuscular Volume 93.7 fL (83.0-100.0); Mean Platelet Volume 10.4 fL (9.4-12.4); Monocytes # 0.8 K/mcL (0.0-1.3); Neutrophils # 14.5 K/mcL (1.6-8.9); Platelet Count 206 K/mcL (140-400); Red Blood Count 4.78 M/mcL (4.19-5.50); Red Cell Distribution Width 13.5 % (11.5-14.5)
[2017-11-21 06:38] LABS: BUN/Creatinine Ratio 18 (6-26); Blood Urea Nitrogen 13 mg/dL (6-20); Calcium 9.1 mg/dL (8.6-10.3); Carbon Dioxide 23 mEq/L (23-29); Chloride 107 mEq/L (98-107); Glucose 142 mg/dL (70-105); Osmolality,Calculated 293 (280-300); Potassium 3.6 mEq/L (3.5-5.1); Sodium 140 mEq/L (136-145); eGFR For African Americans > 60 (> 60); eGFR For Non-African Americans > 60 (> 60)
[2017-11-21] MEDS: Aspirin Enteric Coated 81 MG Tablet PO SCH (08:34)
[2017-11-21] MEDS: (Fluticasone/Vilanterol [Breo Ellipta 200-25 Mcg Inh]) IH SCH (08:34)
[2017-11-21] MEDS ORDERED: Fluticasone Propionate Nasal 50 MCG/SPRAY BOTTLE NS SCH (09:00)
[2017-11-21] MEDS ORDERED: AMPHETAMINE PO SCH (09:00)
[2017-11-21] MEDS ORDERED: Metoprolol XL (24 HR) Succ 25 MG TAB.ER.24H PO SCH (09:00)
[2017-11-21] MEDS ORDERED: DEXTROAMPHETAMINE PO SCH (09:00)
[2017-11-21 11:12] VITALS: BP 170/93
--- NOTE | 2017-11-21 11:15 | Discharge Summary ---
- NOTES TO OUTPATIENT PROVIDER Notes to Outpatient Provider: none Date of Encounter: 11/21/17 Time of Encounter: 11:00 - Discharge Diagnosis (1) Asthma exacerbation Priority: Primary Status: Acute Qualifiers: Asthma severity: unspecified severity Asthma persistence: unspecified Qualified Code(s): J45.901 - Unspecified asthma with (acute) exacerbation (2) Chest pain Priority: Primary Status: Acute Qualifiers: Chest pain type: unspecified Qualified Code(s): R07.9 - Chest pain, unspecified (3) Acute respiratory failure with hypoxia Priority: Primary Status: Acute (4) Allergic reaction Priority: Secondary Status: Acute Qualifiers: Encounter type: initial encounter Qualified Code(s): T78.40XA - Allergy, unspecified, initial encounter (5) Hypertension Priority: Secondary Status: Acute Qualifiers: Hypertension type: essential hypertension Qualified Code(s): I10 - Essential (primary) hypertension Hospital course: Patient is a 52-year-old male with past medical history significant for asthma, hypertension and shellfish/bee venom allergy presented to the ER on 11/20/17 for acute onset of shortness of breath and chest pain. His noticed he had hives, tongue swelling, and he noted that he had lip numbness. She gave him Benadryl during that time. Patient states he is still short of breath but it improved. In the ER patient was not noted to have any respiratory compromise. He was given Solu Medrol and Duo neb therapy. He had a chest x-ray showing pulmonary edema and CTA of chest was negative for PE. He required supplemental oxygen for hypoxia. Patient was admitted to medical surgical floor for observation. During patients hospital stay ENT was consulted medications for continue IV steroids and monitoring overnight. During patients hospital stay his symptoms resolved and able to tolerate by mouth and patient not requiring any supplemental oxygenation. Patient will be discharged to follow up with primary care provider. - Time Spent with Patient Total time spent providing and/or coordinating discharge services: - Discharge Medications Home Medications: Albuterol Sulfate [Albuterol Inhaler] 2 puff IH Q4H PRN 11/20/17 [History] Aspirin Enteric Coated [Aspirin EC] 81 mg PO DAILY 11/20/17 [History] Atorvastatin [Lipitor] 40 mg PO HS 11/20/17 [History] Cholecalciferol (D-3) [Vitamin D] 1,000 unit PO DAILY 11/20/17 [History] Dextroamphetamine/Amphetamine [Adderall Xr 30 mg Capsule] 30 mg PO QAM 11/20/17 [History] Dextroamphetamine/Amphetamine [Dextroamp-Amphetamin 30 mg Tab] 30 mg PO QPM [History] Escitalopram [Lexapro] 10 mg PO DAILY 11/20/17 [History] Esomeprazole Magnesium [Nexium 24Hr] 44.6 mg PO DAILY 11/20/17 [History] Fluticasone Propionate Nasal [Flonase] 1 spr NS DAILY 11/20/17 [History] Fluticasone/Vilanterol [Breo Ellipta 200-25 Mcg INH] 1 puff IH BID 11/20/17 [ History] Metoprolol Succinate [Toprol Xl] 25 mg PO DAILY 11/20/17 [History] Montelukast [Singulair] 10 mg PO DAILY 11/20/17 [History] Ropinirole HCl [Requip] 3 mg PO HS 11/20/17 [History] Allergies/Adverse Reactions: 3 Allergy/AdvReac Type Severity Reaction Status Date / Time bee venom protein (honey bee) Allergy Anaphylaxis Verified 11/20/17 09:29 shellfish derived Allergy Swelling Verified 11/20/17 09:29 of Lip/Tongue/Throat Date of admission: 11/20/17 10:32 Primary care physician: Ricci Cleveland DO - Constitutional Vitals: Temp Pulse Resp BP Pulse Ox 98.0 F 97 18 170/93 93 11/21/17 11:10 11/21/17 11:10 11/21/17 11:10 11/21/17 11:10 11/21/17 11:10 General appearance: Present: no acute distress - ENT ENT exam: Present: normal exam - Respiratory Respiratory exam: Present: CTAB. Absent: accessory muscle use, rales, rhonchi, wheezes - Cardiovascular Cardiovascular exam: Present: RRR, +S1, +S2. Absent: diastolic murmur, gallop, rubs, systolic murmur - Patient Status Disposition: Home, Self-Care Condition: Undetermined - Discharge Instructions Instructions: Chronic Hypertension (DC), General Allergic Reaction, [place] (GEN) Follow Up With: Ricci Cleveland DO [Primary Care Provider] - (web requested )
--- NOTE | 2017-11-22 19:11 | Electrocardiograph Report ---
[address] [address] Test Date: 2017-11-20 Pat Name: Osbaldo Del Rio Department: [id number] Room: 2A13 Gender: M Stars Coordinator: DAYRON : 1965 Requested By: [id number] Order Number: [id number] Reading MD: Lopez Flores Measurements Intervals [place] Rate: 76 P: 74 [place]: 167 QRS: 72 QRSD: 117 T: 47 QT: 376 QTc: 406 Interpretive Statements SINUS RHYTHM Electronically Signed On 11-22-2017 19:09:52 EDT by Lopez Flores
== END 2017-11-21 11:35 | disposition home or self-care (01) ==
LOC: EMEROO 05:05 → 2ANU 05:05 → SUATTDRO 10:32 → 2ANU 11:17
PROVIDERS: ADMIT Student in an Organized Health Care Education/Training Program; ATTEND Hospitalist